=== PATIENT | female | born 1970 | race Caucasian/White ===

== ENCOUNTER 2018-03-28 11:17 | Emergency (ER) | payer BC ==
[~2018-03-28] VITALS: Ht 160 cm; Wt 83.6 kg
[2018-03-28 12:14] LABS: HEMATOCRIT 25.3 % (36.0-46.0); MCH 28.3 PG (29.0-34.0); MCV 83.2 FL (83-99); PLATELET COUNT 283 K/uL (156-360); RBC DIS.WIDTH-CV 13.9 % (11.8-14.6); RBC DIS.WIDTH-SD 41.8 % (39-53); WHITE BLOOD COUNT 10.6 K/uL (4.1-10.2)
[2018-03-28 12:15] LABS: HEMOGLOBIN 8.6 G/DL (11.9-15.5); RED BLOOD COUNT 3.04 M/uL (3.80-5.20)
[2018-03-28 14:58] VITALS: BP 141/73
== END 2018-03-28 15:02 | disposition home or self-care (01) ==
LOC: EME 11:17
DX: N93.8 Other specified abnormal uterine and vaginal bleeding (principal); D64.9 Anemia, unspecified; Z87.891 Personal history of nicotine dependence
CPT/HCPCS: 76856; 81003; 84702; 85027; 86850; 86900; 86901; 99281; 99284